=== PATIENT | male | born 1985 | race African-American/Black ===

== ENCOUNTER 2019-10-02 16:10 | Emergency (ER) | payer SELFPAY ==
[2019-10-02 16:37] VITALS: BP 126/76; PULSE 74; TEMP 98; BMI 25.0
[2019-10-02] MEDS ORDERED: KETOROLAC TROMETHAMINE 30 MG/1 ML VIAL IM ONE (16:41)
--- NOTE | 2019-10-02 16:47 | PDOC ---
History of Present Illness - General Chief Complaint: Toothache Stated Complaint: Tooth Infection Time Seen by Provider: 10/02/19 16:30 History Source: Patient Exam Limitations: No Limitations - History of Present Illness Initial Comments: 10/02/19 16:40 33-year-old male denies past medical history presents complaining of right upper and lower dental pain x1 week worsening over the past 6 hours ago. Last took acetaminophen approximately 4 hours ago without much relief. Denies dental trauma, fever, chills. ROS: Dental pain PE: GENERAL: well-appearing, NAD HEAD: NCAT, no facial swelling noted EYES: Pupils equal, round and reactive to light, sclera anicteric, conjunctiva clear ENT: pharynx: no erythema, no exudate, uvula midline mouth: Minimal swelling noted to upper and lower right-sided gum area, no pus pocket noted, no cracked tooth noted NECK: supple CHEST: nontender RESP: clear, no w/r/r CARDIO: rrr, no m/g/r ABD: +BS, soft, nontender, non distended SKIN: Warm, Dry 10/02/19 16:43 Is this a multiple visit Asthma Patient?: No Past History - Past Medical History Allergies/Adverse Reactions: Allergies Allergy/AdvReac Type Severity Reaction Status Date / Time No Known Allergies Allergy Verified 10/02/19 16:28 Home Medications: Ambulatory Orders Amoxicillin - [Amoxicillin 500mg Capsule -] 500 mg PO TID #21 capsule 10/02/19 Ibuprofen 600 mg PO Q6H #20 tablet 10/02/19 - Psycho Social/Smoking Cessation Hx Smoking History: Unknown if ever smoked Hx Alcohol Use: No Drug/Substance Use Hx: No *Physical Exam - Vital Signs Last Vital Signs Temp Pulse Resp BP Pulse Ox 98 F 74 16 126/76 100 10/02/19 16:18 10/02/19 16:18 10/02/19 16:18 10/02/19 16:18 10/02/19 16:18 Medical Decision Making - Medical Decision Making 10/02/19 16:42 33-year-old male complaining of right upper and lower dental pain x1 week worsening today. IM Toradol We will send prescription for antibiotic and ibuprofen Advised patient to follow-up with a dentist this week Discharge - Discharge Information Problems reviewed: Yes Clinical Impression/Diagnosis: Pain, dental Condition: Stable Disposition: HOME - Admission No - Additional Discharge Information Prescriptions: Amoxicillin - [Amoxicillin 500mg Capsule -] 500 mg PO TID #21 capsule Ibuprofen 600 mg PO Q6H #20 tablet - Follow up/Referral - Patient Discharge Instructions Additional Instructions: Take amoxicillin 500 mg 3 times a day for 7 days Take ibuprofen 600 mg every 6 hours as needed for pain Follow-up with a dentist this week Facial swelling, fever, chills, worsening symptoms return to ED - Post Discharge Activity
[2019-10-02] MEDS ORDERED: KETOROLAC TROMETHAMINE 30 MG/1 ML VIAL ONE (16:50)
== END 2019-10-02 17:11 | disposition home or self-care (01) ==
LOC: JER 16:10 → JERFT 16:10
PROC: 3E0233Z Introduction of Anti-inflammatory into Muscle, Percutaneous Approach (ICD-10-PCS; principal; 2019-10-02)
DX: K08.89 Other specified disorders of teeth and supporting structures (principal)
CPT/HCPCS: 99284-25

== ENCOUNTER 2020-03-23 17:09 | Emergency (ER) | payer OTHER ==
[2020-03-23 17:12] VITALS: BP 134/74; PULSE 79; TEMP 98.5; BMI 25.7
--- NOTE | 2020-03-23 17:18 | PDOC ---
Suture Removal/Wound Check HPI - History of Present Illness Chief Complaint: Suture/Staple Removal(Here) Stated Complaint: SUTCHER REMOV. Time Seen by Provider: 03/23/20 17:13 History Source: Yes: Patient Exam Limitations: Yes: No Limitations Treated at: [facility] Date of Last ED visit: 03/16/20 - Previous ED Treatment Type of procedure performed on last visit: Yes: Laceration Repair Tetanus Immunization: Yes: Up to Date Antibiotics Prescribed: No Past History - Medical History Allergies/Adverse Reactions: Allergies Allergy/AdvReac Type Severity Reaction Status Date / Time No Known Allergies Allergy Verified 03/15/20 23:24 Home Medications: Ambulatory Orders Ibuprofen 600 mg PO Q6H #20 tablet 10/02/19 COPD: No - Psycho-Social/Smoking History Smoking History: Never smoked - Substance Abuse Hx (Audit-C & DAST Scrn) How often the patient has a drink containing alcohol: Never Score: In Men: 4 or > Positive; In Women: 3 or > Positive: 0 Screen Result (Pos requires Nsg. Audit-10AR): Negative Suture Removal/Wound Check PE - Physical Exam Laceration/Wound Check Symptoms: reports: None. denies: Pain, Chills, Redness, Bleeding Current Severity Level: None Location of Laceration/Wound: left: Face (lef eyebrow) *Review of Systems - Review of Systems Able to Perform ROS?: Yes Constitutional: No: Fever, Malaise, Weakness HEENTM: Yes: Symptoms Reported, See HPI, Other (left eyebrow laceration with sutures in place). No: Eye Pain, Blurred Vision, Tearing, Recent change in vision, Double Vision, Cataracts, Ear Pain, Ocular Prothesis, Ear Discharge, Nose Pain, Nose Congestion, Tinnitus, Nose Bleeding, Hearing Loss, Throat Pain, Throat Swelling, Mouth Pain, Dental Problems, Difficulty Swallowing, Mouth Swelling Respiratory: No: Symptoms reported Cardiac (ROS): No: Symptoms Reported ABD/GI: No: Symptoms Reported, Nausea, Vomiting Integumentary: Yes: Symptoms Reported, See HPI, Other (lac to left eyebrow) Neurological: No: Headache, Dizziness All Other Systems: Reviewed and Negative *Physical Exam - Vital Signs Last Vital Signs Temp Pulse Resp BP Pulse Ox 98.5 F 79 18 134/74 99 03/23/20 17:10 03/23/20 17:10 03/23/20 17:10 03/23/20 17:10 03/23/20 17:10 - Physical Exam 03/23/20 17:26 GENERAL: Well developed, well nourished. Awake and alert. No acute distress. HEENT: Normocephalic, atraumatic. PERRLA, EOMI. No conjunctival pallor. Sclera are non-icteric. Moist mucous membranes. Oropharynx is clear. NECK: Supple. Full ROM. PULMONARY: No evidence of respiratory distress. MUSCULOSKELETAL Normal range of motion at all joints. SKIN: Warm and dry. Normal capillary refill. Well-healed 2 cm laceration to left upper eyebrow with [address] No skin erythema. No wound dehiscence. No discharge from wound sites. No evidence of wound infection NEUROLOGICAL: Alert, awake, appropriate. Gait is normal without ataxia. PSYCHIATRIC: Cooperative. Good eye contact. Appropriate mood General Appearance: Yes: Nourished, Appropriately Dressed. No: Apparent Distress Medical Decision Making - Medical Decision Making 03/23/20 17:29 Patient with no significant past medical history present for suture removal status post presenting a week ago with laceration to left upper eyebrow status post injury while playing basketball required suture placement. Patient denies headache, pain to wound site, discharge from wound site, redness to area. Denies any other symptoms. Exam significant for 2 cm well-healed laceration to left eyebrow with [address] No evidence of wound infection. No discharge from wound site. Sutures removed with suture removal care with scissors and forceps without complication. Bacitracin applied to wound. Patient stable for discharge with advised to continue home bacitracin to wound twice a day for another week with follow-up with PCP Discharge - Discharge Information Problems reviewed: Yes Clinical Impression/Diagnosis: Visit for suture removal Forehead laceration Qualifiers: Encounter type: subsequent encounter Qualified Code(s): S01.81XD - Laceration without foreign body of other part of head, subsequent encounter Condition: Stable Disposition: HOME - Admission No - Follow up/Referral - Patient Discharge Instructions Patient Printed Discharge Instructions: DI for Suture Removal Additional Instructions: Continue applying bacitracin or Neosporin to wound twice a day until fully healed. Take Tylenol as needed for pain follow-up with your primary care as needed - Post Discharge Activity
== END 2020-03-23 17:24 | disposition home or self-care (01) ==
LOC: JERFT 17:09
DX: Z48.02 Encounter for removal of sutures (principal)
CPT/HCPCS: 99281-25

== ENCOUNTER 2020-10-04 06:06 | Emergency (ER) | payer OTHER ==
[2020-10-04 06:09] VITALS: BMI 26.4
[2020-10-04] MEDS ORDERED: IBUPROFEN 400 MG TABLET (FP) PO ONE ×2 (06:20→06:24)
[2020-10-04 07:31] LABS: BASO % 0.3 % (0-2.0); EOS % 2.4 % (0-4.5); HEMATOCRIT 41.8 % (35.4-49); HEMOGLOBIN 13.6 GM/dL (11.7-16.9); LYMPH % 28.4 % (8-40); MCH 26.6 pg (25.7-33.7); MCHC 32.6 g/dl (32.0-35.9); MEAN CELL VOLUME 81.7 fl (80-96); MEAN PLT VOLUME 9.1 fl (7.5-11.1); MONO % 8.6 % (3.8-10.2); NEUT % 60.3 % (42.8-82.8); PLATELET COUNT 286 K/MM3 (134-434); RBC 5.12 M/mm3 (4.00-5.60); RDW 13.3 % (11.9-15.9); WHITE BLOOD COUNT 5.5 K/mm3 (4.0-10.0)
[2020-10-04 08:05] LABS: CHLORIDE 106 mmol/L (98-107); POTASSIUM 4.2 mmol/L (3.5-5.1); SODIUM 138 mmol/L (136-145)
[2020-10-04 08:07] LABS: ALBUMIN 3.8 g/dl (3.4-5.0); ANION GAP 7 MMOL/L (8-16); CALCIUM 8.6 mg/dL (8.5-10.1); CO2 25 mmol/L (21-32); GLUCOSE,RANDOM 88 mg/dL (74-106)
[2020-10-04 08:10] LABS: CREATININE 0.8 mg/dL (0.55-1.3); SGOT/AST 17 U/L (15-37); SGPT/ALT 33 U/L (13-61)
[2020-10-04 08:12] LABS: BILIRUBIN,TOTAL 0.4 mg/dL (0.2-1); TOT PROT 7.1 g/dl (6.4-8.2)
[2020-10-04 08:13] LABS: ALK PHOS 87 U/L (45-117)
[2020-10-04 10:25] VITALS: BP 127/72; PULSE 82; TEMP 98.5
== END 2020-10-04 09:00 | disposition home or self-care (01) ==
LOC: JER 06:06
DX: R07.9 Chest pain, unspecified (principal)
CPT/HCPCS: 36415; 71046-TC-FY; 80053; 82550; 84484; 85025; 93005; 93010; 99285-25; C9803; U0003